=== PATIENT | male | born 1960 | race African-American/Black ===

== ENCOUNTER 2021-05-19 06:53 | Inpatient (IN) | payer OTHER ==
[2021-05-19 07:45] LABS: #Eosinphils 0.1 10x3/uL (0.0-0.5); #Monocytes 0.6 10x3/uL (0.0-1.1); #Neutrophils 3.6 10x3/uL (1.5-8.4); %Basophils 0.5 % (0.0-2.0); %Eosinophils 1.6 % (0.0-6.0); %Monocytes 10.2 % (0.0-10.0); %Neutrophils 63.3 % (40.0-75.0); Hemoglobin 12.7 g/dL (13.5-17.5); Mean Corpuscular HGB CONC 32.6 g/dL (32.0-36.0); Mean Corpuscular Hemoglobin 31.1 pg (27.0-33.0); Mean Corpuscular Volume 95.3 fl (81.2-95.1); Mean Platelet Volume 11.1 fl (7.4-10.4); Platelet Count 165 10x3/uL (150-450); RBC Distribution Width 11.9 % (11.5-14.5); Red Blood Cell (RBC) Count 4.08 10x6/uL (4.32-5.72); White Blood Cell (WBC) Count 5.7 10x3/uL (3.5-10.5)
[2021-05-19 07:55] LABS: INR-International Normal Ratio 1.2; PTT 30.9 sec (22.0-33.0); Prothrombin Time 13.3 sec (9.5-12.1)
[2021-05-19 08:00] LABS: ALT (SGPT) 10 U/L (8-55); AST (SGOT) 15 U/L (5-34); Albumin 3.6 g/dL (3.5-5.0); Alkaline Phosphatase 58 U/L (40-110); Anion Gap 12 mmol/L (10-20); BUN (Urea Nitrogen) 14 mg/dL (8.4-25.7); Bilirubin, Total 0.9 mg/dL (0.2-1.2); CK (CPK) 174 U/L (30-200); Calc. Creatinine Clearance 0 mL/min (70-130); Carbon Dioxide 22 mmol/L (22-29); Chloride 109 mmol/L (98-107); Globulin 2.6 g/dL (2.4-3.5); Glucose 101 mg/dL (70-105); Potassium 3.9 mmol/L (3.5-5.1); Protein, Total 6.2 g/dL (6.0-8.3); Sodium 139 mmol/L (136-145)
[2021-05-19] MEDS ORDERED: Enoxaparin Sodium 80 MG/0.8 ML SYRINGE ONE (09:50)
[2021-05-19 10:48] LABS: SARS-CoV-2 NAA Rapid Test Not Detected (NotDetected)
[2021-05-19 11:48] VITALS: BMI 24.6
[2021-05-19] MEDS ORDERED: Ondansetron ODT 4 MG TAB PO PRN (12:16)
[2021-05-19] MEDS ORDERED: Ondansetron PF 4 MG/2 ML Vial IVP PRN (12:16)
[2021-05-19] MEDS ORDERED: Acetaminophen 325 MG TAB PO PRN (12:16)
[2021-05-19] MEDS: Morphine 4 MG/ML VIAL SLOW IVP PRN ×2 (13:37→22:02)
[2021-05-19] MEDS ORDERED: Warfarin Sodium 7.5 MG TAB PO SCH (17:00)
[2021-05-19] MEDS: Enoxaparin Sodium 80 MG/0.8 ML SYRINGE SC SCH (21:17)
[2021-05-19] MEDS: Raltegravir Potassium 400 MG TAB PO SCH (21:18)
[2021-05-20 04:15] LABS: #Eosinphils 0.1 10x3/uL (0.0-0.5); #Monocytes 0.6 10x3/uL (0.0-1.1); #Neutrophils 2.4 10x3/uL (1.5-8.4); %Basophils 0.6 % (0.0-2.0); %Eosinophils 2.4 % (0.0-6.0); %Lymphocytes 38.7 % (18.0-47.0); %Neutrophils 46.7 % (40.0-75.0); Hemoglobin 13.6 g/dL (13.5-17.5); Mean Corpuscular HGB CONC 33.1 g/dL (32.0-36.0); Mean Corpuscular Hemoglobin 31.4 pg (27.0-33.0); Mean Corpuscular Volume 94.9 fl (81.2-95.1); Mean Platelet Volume 11.3 fl (7.4-10.4); Platelet Count 184 10x3/uL (150-450); RBC Distribution Width 11.8 % (11.5-14.5); Red Blood Cell (RBC) Count 4.33 10x6/uL (4.32-5.72); White Blood Cell (WBC) Count 5.1 10x3/uL (3.5-10.5)
[2021-05-20 04:20] LABS: INR-International Normal Ratio 1.2; Prothrombin Time 13.5 sec (9.5-12.1)
[2021-05-20 04:39] LABS: Anion Gap 12 mmol/L (10-20); BUN (Urea Nitrogen) 12 mg/dL (8.4-25.7); Calc. Creatinine Clearance 82 mL/min (70-130); Carbon Dioxide 26 mmol/L (22-29); Chloride 105 mmol/L (98-107); Glucose 96 mg/dL (70-105); Magnesium 1.8 mg/dL (1.6-2.6); Potassium 4.1 mmol/L (3.5-5.1); Sodium 139 mmol/L (136-145)
[2021-05-20] MEDS: Enoxaparin Sodium 80 MG/0.8 ML SYRINGE SC SCH (08:35)
[2021-05-20] MEDS: Lisinopril 20 MG TAB PO SCH (08:37)
[2021-05-20] MEDS: Potassium Chloride 20 MEQ TAB PO SCH (08:41)
[2021-05-20] MEDS ORDERED: traMADol HCl 50 MG TAB PO PRN (09:20)
[2021-05-20] MEDS ORDERED: Methocarbamol 500 MG TAB PO PRN (09:21)
[2021-05-20] MEDS: Morphine 4 MG/ML VIAL SLOW IVP PRN ×2 (09:31→16:25)
[2021-05-20] MEDS: diphenhydrAMINE 25 MG CAP PO PRN ×2 (09:33→16:25)
[2021-05-20] MEDS: Raltegravir Potassium 400 MG TAB PO SCH ×2 (09:33→20:24)
[2021-05-20] MEDS ORDERED: Warfarin Sodium 2.5 MG TAB PO SCH (17:00)
[2021-05-20] MEDS ORDERED: Apixaban 5 MG TAB PO SCH (21:00)
[2021-05-21 04:49] LABS: #Eosinphils 0.1 10x3/uL (0.0-0.5); #Monocytes 0.5 10x3/uL (0.0-1.1); #Neutrophils 2.8 10x3/uL (1.5-8.4); %Basophils 0.6 % (0.0-2.0); %Eosinophils 2.2 % (0.0-6.0); %Monocytes 8.6 % (0.0-10.0); %Neutrophils 51.9 % (40.0-75.0); Hemoglobin 13.6 g/dL (13.5-17.5); Mean Corpuscular HGB CONC 31.8 g/dL (32.0-36.0); Mean Corpuscular Hemoglobin 30.6 pg (27.0-33.0); Mean Corpuscular Volume 96.4 fl (81.2-95.1); Mean Platelet Volume 10.7 fl (7.4-10.4); Platelet Count 202 10x3/uL (150-450); RBC Distribution Width 11.9 % (11.5-14.5); Red Blood Cell (RBC) Count 4.44 10x6/uL (4.32-5.72); White Blood Cell (WBC) Count 5.4 10x3/uL (3.5-10.5)
[2021-05-21 04:51] LABS: INR-International Normal Ratio 1.3; Prothrombin Time 14.6 sec (9.5-12.1)
[2021-05-21 04:56] LABS: Anion Gap 14 mmol/L (10-20); BUN (Urea Nitrogen) 13 mg/dL (8.4-25.7); Calc. Creatinine Clearance 81 mL/min (70-130); Calcium 8.9 mg/dL (7.8-10.44); Carbon Dioxide 27 mmol/L (22-29); Chloride 103 mmol/L (98-107); Glucose 102 mg/dL (70-105); Potassium 4.5 mmol/L (3.5-5.1); Sodium 139 mmol/L (136-145)
[2021-05-21] MEDS: Potassium Chloride 20 MEQ TAB PO SCH ×2 (09:18→09:36)
[2021-05-21] MEDS: Lisinopril 20 MG TAB PO SCH (09:19)
[2021-05-21] MEDS: Raltegravir Potassium 400 MG TAB PO SCH (09:21)
[2021-05-21] MEDS ORDERED: Enoxaparin Sodium 80 MG/0.8 ML SYRINGE SC SCH ×2 (09:30→21:00)
[2021-05-21] MEDS: diphenhydrAMINE 25 MG CAP PO PRN (09:58)
[2021-05-21] MEDS: Morphine 4 MG/ML VIAL SLOW IVP PRN (09:58)
[2021-05-21] MEDS ORDERED: Warfarin Sodium 5 MG TAB PO SCH (10:30)
[2021-05-21 10:57] LABS: INR-International Normal Ratio 1.3; Prothrombin Time 13.7 sec (9.5-12.1)
[2021-05-21 11:59] VITALS: BP 125/82; TEMP 98.2
[2021-05-22] MEDS ORDERED: Warfarin Sodium 3 MG TAB PO SCH (17:00)
== END 2021-05-21 16:00 | DRG 300 ==
LOC: CSHERS 06:53 → EEVIPCON 11:18 → CSHTELE 11:18
PROVIDERS: ADMIT Internal Medicine; ATTEND Internal Medicine
DX: I82.612 Acute embolism and thrombosis of superficial veins of left upper extremity (principal); J96.11 Chronic respiratory failure with hypoxia; J44.9 Chronic obstructive pulmonary disease, unspecified; K21.9 Gastro-esophageal reflux disease without esophagitis; D53.9 Nutritional anemia, unspecified; I10 Essential (primary) hypertension; Z20.822 Contact with and (suspected) exposure to COVID-19; Z21 Asymptomatic human immunodeficiency virus [HIV] infection status; Z86.711 Personal history of pulmonary embolism; Z86.718 Personal history of other venous thrombosis and embolism; Z91.14 Patient's other noncompliance with medication regimen; Z88.8 Allergy status to other drugs, medicaments and biological substances; Z98.890 Other specified postprocedural states
CPT/HCPCS: 36415; 80048; 80053; 82550; 83735; 84484; 85025; 85610; 85730; 93005; 93010; 93970; 94760; 96372; J1650; J2270; U0002